=== PATIENT | female | born 1955 | race Caucasian/White ===

== ENCOUNTER 2016-10-01 23:12 | Emergency (ER) | payer BC ==
[~2016-10-01] VITALS: Ht 160 cm; Wt 59.6 kg
[2016-10-01 23:13] VITALS: BP 136/77
== END 2016-10-01 23:58 | disposition home or self-care (01) ==
LOC: ED 23:52
DX: H65.01 Acute serous otitis media, right ear (principal); J04.0 Acute laryngitis; B34.9 Viral infection, unspecified
CPT/HCPCS: 99281